=== PATIENT | male | born 1965 | race Caucasian/White ===

== ENCOUNTER 2018-03-10 08:23 | Day surgery (SDC) ==
[2018-03-10] MEDS: TETRACAINE 0.5% UNIT-DOSE OP PRN ×2 (08:55→09:35)
[2018-03-10] MEDS: BETADINE OPTH PREP OP PRN ×2 (08:55→09:35)
[2018-03-10] MEDS: CYCLOGYL 2% OPTH OP PRN ×3 (08:56→09:06)
[2018-03-10] MEDS ORDERED: ZOFRAN 4 MG/2 ML IVP ONE (09:03)
[2018-03-10] MEDS ORDERED: DEX-MOXI-KETOR OPTH INJ 1/0.5/0.4 MG/ML IO ONE (09:03)
[2018-03-10] MEDS ORDERED: BSS WITH EPINEPHRINE OP ONE (09:03)
[2018-03-10] MEDS ORDERED: BRIMONIDINE TARTRATE 0.2% OPTH SOL OP PRN (09:03)
[2018-03-10] MEDS ORDERED: LIDOCAINE 1% 20 ML MDV ID STA (09:03)
[2018-03-10] MEDS ORDERED: LIDOCAINE 1%/PHENYLEPHRINE 1.5% BSS (SURGERY) INTRAOCULA ONE (09:03)
[2018-03-10 09:09] VITALS: TEMP 97.6
[2018-03-10] MEDS ORDERED: SUBLIMAZE ONE (09:25)
[2018-03-10] MEDS ORDERED: VERSED ONE (09:25)
[2018-03-10] MEDS ORDERED: ZOFRAN 4 MG/2 ML ONE (09:25)
[2018-03-10 14:11] VITALS: BP 117/74
== END 2018-03-10 10:10 | disposition home or self-care (01) ==
LOC: SURG 08:23
PROVIDERS: ATTEND Ophthalmology
DX: H52.01 Hypermetropia, right eye (principal)

== ENCOUNTER 2018-03-25 07:49 | Day surgery (SDC) ==
[2018-03-25] MEDS: BETADINE OPTH PREP OP PRN ×2 (08:15→08:52)
[2018-03-25] MEDS: TETRACAINE 0.5% UNIT-DOSE OP PRN ×2 (08:15→08:51)
[2018-03-25] MEDS: CYCLOGYL 2% OPTH OP PRN ×3 (08:16→08:26)
[2018-03-25] MEDS ORDERED: LIDOCAINE 1%/PHENYLEPHRINE 1.5% BSS (SURGERY) INTRAOCULA ONE (08:23)
[2018-03-25] MEDS ORDERED: BSS WITH EPINEPHRINE OP ONE (08:23)
[2018-03-25] MEDS ORDERED: BRIMONIDINE TARTRATE 0.2% OPTH SOL OP PRN (08:23)
[2018-03-25] MEDS ORDERED: DEX-MOXI-KETOR OPTH INJ 1/0.5/0.4 MG/ML IO ONE (08:23)
[2018-03-25] MEDS ORDERED: LIDOCAINE 1% 20 ML MDV ID STA (08:23)
[2018-03-25] MEDS ORDERED: ZOFRAN 4 MG/2 ML IVP ONE (08:23)
[2018-03-25 08:31] VITALS: TEMP 97.8
[2018-03-25] MEDS ORDERED: VERSED ONE (08:47)
[2018-03-25] MEDS ORDERED: SUBLIMAZE ONE (08:47)
[2018-03-25] MEDS ORDERED: ZOFRAN 4 MG/2 ML ONE (08:47)
[2018-03-26 10:22] VITALS: BP 125/78
== END 2018-03-25 09:45 | disposition home or self-care (01) ==
LOC: SURG 07:49
PROVIDERS: ATTEND Ophthalmology
DX: H52.02 Hypermetropia, left eye (principal)